=== PATIENT | male | born 1980 | race African-American/Black ===

== ENCOUNTER 2019-07-12 03:01 | Emergency (ER) | payer SELFPAY ==
[2019-07-12] MEDS ORDERED: LIDOCAINE 1%/EPINEPHRINE INJ 20 ML VIAL INJ ONE (03:14)
[2019-07-12] MEDS ORDERED: LIDOCAINE 4%/TETRACAINE 0.5%/EPI 0.18% 5 ML TOPICAL SOLN TOP ONE (03:15)
--- NOTE | 2019-07-12 03:17 | ER Document Report ---
ED General - General Stated Complaint: FACIAL INJURY Time Seen by Provider: 07/12/19 03:09 Primary Care Provider: MARGARETH GOMEZ [NO LOCAL MD] - Follow up as needed Notes: Patient is a 39-year-old male that comes emergency department for chief com plaint of fall and head injury. Patient was reportedly drinking at a local bar, became very intoxicated, lost his balance and fell, hitting his head. There is a bleeding laceration over his right forehead. Patient is unsure if he was knocked out or not. Denies vomiting. He was at the bar with his family but they are not here yet. He reports his tetanus is up-to-date within 5 years, he denies any daily medications or diagnosed medical problems. - Related Data Allergies/Adverse Reactions: No Known Allergies Allergy (Unverified 07/12/19 03:30) Past Medical History - General Information source: Patient - Social History Smoking Status: Never Smoker Frequency of alcohol use: None Drug Abuse: None Lives with: Family Family History: Reviewed & Not Pertinent Surgical Hx: Negative - Immunizations Immunizations up to date: Yes Hx Diphtheria, Pertussis, Tetanus Vaccination: Yes Review of Systems - Review of Systems Constitutional: No symptoms reported EENT: No symptoms reported Cardiovascular: No symptoms reported Respiratory: No symptoms reported Gastrointestinal: No symptoms reported Genitourinary: No symptoms reported Male Genitourinary: No symptoms reported Musculoskeletal: See HPI Skin: See HPI Hematologic/Lymphatic: No symptoms reported Neurological/Psychological: See HPI Physical Exam - Vital signs Vitals: Temp Pulse Resp BP Pulse Ox 98.6 F 99 16 143/86 H 96 07/12/19 03:07 07/12/19 03:07 07/12/19 03:07 07/12/19 03:07 07/12/19 03:07 - Notes Notes: GENERAL: Sleeping but easily aroused, smells of alcohol, appears intoxicated HEAD: Normocephalic, there is a 3 cm linear laceration over the right lateral forehead, partial-thickness, however there are no other signs of trauma. EYES: Pupils equal, round, and reactive to light. Extraocular movements intact. ENT: Oral mucosa moist, tongue midline. Oropharynx unremarkable. Airway patent. Nares patent, no nasal septal hematoma, TM's intact. NECK: Full range of motion. Supple. Trachea midline. LUNGS: Clear to auscultation bilaterally, no wheezes, rales, or rhonchi. No respiratory distress. No signs of trauma. HEART: Regular rate and rhythm. No murmur ABDOMEN: Soft, non-tender. Non-distended. No signs of trauma. EXTREMITIES: Moves all 4 extremities spontaneously. No edema, normal radial and dorsalis pedis pulses bilaterally. No cyanosis. BACK: no cervical, thoracic, lumbar midline tenderness. No saddle anesthesia, normal distal neurovascular exam. Moves all extremities in full range of motion. NEUROLOGICAL: Oriented to person and place but not to events. Slurred speech. Gait ataxia. Cranial nerves II through XII grossly intact. SKIN: Warm, dry, normal turgor. No rashes or lesions noted. Course - Re-evaluation Re-evalutation: CT of the head and neck are negative. Patient with open wound over the right forehead which was cleaned thoroughly and repaired. Attempted to repair with subcutaneous sutures and Dermabond for better cosmetic results and this was very successful. Patient will need to be monitored until he is more sober. Girlfriend is now at bedside, patient is significantly improved, discussed care of wound, follow-up, return precautions in detail. They state understanding and agreement. Stable at time of discharge. - Vital Signs Vital signs: Temp Pulse Resp BP Pulse Ox 98.4 F 99 14 131/96 H 96 07/12/19 05:18 07/12/19 03:07 07/12/19 05:18 07/12/19 05:18 07/12/19 03:07 Procedures - Laceration/Wound Repair Right forehead Wound length (cm): 3 Wound's Depth, Shape: Linear Laceration pre-procedure: Sterile PPE donned, Sterile drapes applied, Shur-Clens applied Anesthetic type: Other - l.e.t. Wound explored: Clean, No foreign body removed Wound Repaired With: Dermabond Layer Closure?: Yes Deep Layer Suture Size/Type: 5:0, Other - vicryl Number Deep Layer Sutures: 5 Post-procedure NV exam normal: Yes Complications: No Notes: Clean area thoroughly, 5 buried subcuticular stitches were performed and then Dermabond performed over the surface with excellent cosmetic results. Discharge - Discharge Clinical Impression: Alcohol intoxication Qualifiers: Complication of substance-induced condition: uncomplicated Qualified Code(s): F10.920 - Alcohol use, unspecified with intoxication, uncomplicated Forehead laceration Qualifiers: Encounter type: initial encounter Qualified Code(s): S01.81XA - Laceration with out foreign body of other part of head, initial encounter Condition: Stable Disposition: HOME, SELF-CARE Additional Instructions: The CAT scan does not show any injury to the neck or bleeding in the brain. Please follow head injury precautions listed below. You will most likely have some postconcussive symptoms as well. Sutures underneath the glue will dissolve with time. The wound has been closed with Dermabond, this will protect the area, this should fall off in about 5-7 days on its own. You can clean the area but avoid soaking or scrubbing the area. If the dermabond has not come off on its own after a week you can remove this by applying a topical antibiotic. Follow-up with primary care. Return for any concerning symptoms including signs of infection such as pain, developing redness, fever, or any other concerning or worsening symptoms. Head Injury Precautions At this point, there is no evidence that your head injury is serious. Observation is necessary, however. Take only clear liquids for the first few hours, unless told otherwise by the doctor. If no pain medication was prescribed, you may take acetaminophen according to the directions on the bottle. Do not take any medication that may alter your level of alertness (unless you've discussed it with the doctor first). Limit activity for the first 24 hours. During the first 24 hours, check to see approximately every two to three hours that the patient is easily arousable, responds normally, and can perform common tasks such as walking without difficulty. Contact your doctor or go to the hospital if any of the following things occur: Persistent vomiting, difficulty in arousing the patient, worsening or continued headache, or failure to improve as expected. Head injuries can cause symptoms that persist for a few days or even a few weeks. Post-Concussion Syndrome Post-concussion syndrome often follows a mild head injury. Dizziness, mild nausea, mild headache, trouble concentrating, and a general sense of "not being right" may persist for a week or two. This is a frequent complication of concussion. However, if the symptoms worsen, or new symptoms develop, you should be re-examined by the physician. There is no specific cure for post-concussion syndrome. You can take mild pain medication such as ibuprofen or acetaminophen. While you should not drive if you are dizzy, you can get back to your regular activities as quickly as the symptoms will allow. And while vigorous exercise may worsen the headache, mild physical activity often is helpful. Sitting and thinking about your symptoms will worsen them. If difficulties continue, you may need referral for special therapy to help you regain full mental function. Call the physician if you are worsening, or if symptoms are still present in one week. Report any new symptoms immediately. Referrals: LOCALMD,NO [NO LOCAL MD] - Follow up as needed
--- NOTE | 2019-07-12 04:16 | RADIOLOGY REPORT (SQ) ---
EXAM DESCRIPTION: CT HEAD WITHOUT IV CONTRAST, CT CERVICAL SPINE WITHOUT IV CONTRAST COMPLETED DATE/TME: 07/12/2019 03:15 CLINICAL HISTORY: 39 years, Male, fall, head injury, ETOH COMPARISON: None Available. Technique: Contiguous axial images of the brain were obtained without the administration of intravenous contrast. Coronal and sagittal reformats obtained and reviewed. This exam was performed according to our departmental dose-optimization program which includes use of Automated Exposure Control, adjustment of the mA and/or kV according to patient size and/or use of iterative reconstruction technique. Findings: Brain: No hemorrhage. No territorial infarct. No mass effect. No herniation. Ventricles: Within normal limits for patient's age. Bones: No acute osseous abnormality. Paranasal sinuses: Unremarkable. Mastoid air cells: Unremarkable. Soft tissues: No acute abnormality. IMPRESSION: No acute intracranial abnormalities. EXAM DESCRIPTION: CT cervical spine without contrast CLINICAL HISTORY: 39 years Male fall, head injury, ETOH COMPARISON: None TECHNIQUE: Multiplanar imaging through the cervical spine without contrast. This exam was performed according to our departmental dose-optimization program, which includes automated exposure control, adjustment of the mA and/or kV according to patient size and/or use of iterative reconstruction technique. FINDINGS: No fracture. 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 No subluxation. Mild disc space narrowing and marginal osteophytes C5-6 and C6-7. Soft tissues are unremarkable. Visualized lung is clear. IMPRESSION: No acute abnormality. No fracture or subluxation.
[2019-07-12 05:19] VITALS: BP 131/96
== END 2019-07-12 05:22 | disposition home or self-care (01) ==
LOC: ER 03:01
DX: S01.81XA Laceration without foreign body of other part of head, initial encounter (principal); S09.90XA Unspecified injury of head, initial encounter; F10.920 Alcohol use, unspecified with intoxication, uncomplicated; W01.0XXA Fall on same level from slipping, tripping and stumbling without subsequent striking against object, initial encounter; Y92.89 Other specified places as the place of occurrence of the external cause
CPT/HCPCS: 99284; 70450; 72125; 12052; J3490